=== PATIENT | female | born 1955 | race Caucasian/White ===

== ENCOUNTER 2023-12-02 07:40 | Outpatient (CLI) | payer OTHER, SELFPAY ==
--- NOTE | ~2023-12-02 | MR_ITS ---
MRI of the lumbar spine Clinical History: Compression deformity Technique: Axial T2-weighted images, and sagittal T1-weighted, T2-weighted, and T2 fat-sat images wer e acquired. Findings: There is no fracture or subluxation of the lumbar spine. There is minimal grade 1 anterolis thesis of L4 over L5. No suspicious bone marrow signal abnormality seen. At L1-L2, there is minimal disc bulge with moderate facet arthropathy. No central canal stenosis. The re is mild left neural foraminal narrowing. Right neural foramen preserved. At L2-L3, there is minimal disc bulge with advanced facet arthropathy. No mercedes central canal stenosi s or neural foraminal narrowing. At L3-L4, there is diffuse disc bulge with severe facet arthropathy, resulting in severe spinal canal stenosis/thecal sac compression. There is moderate to severe right neural foraminal narrowing, and m oderate left neural foraminal narrowing. At L4-L5, there is diffuse disc bulge and severe facet arthropathy, with mild central canal stenosis. There is mild bilateral neural foraminal narrowing. At L5-S1, there is minimal disc bulge with moderate to advanced facet arthropathy. No central canal s tenosis or neural foraminal narrowing. Paravertebral soft tissues are unremarkable. Impression: Severe degenerative spondylosis at L3-L4. Moderate degenerative changes remainder of the lumbar spine, as above. Reviewed, dictated and finalized at [facility]. Impression: Severe degenerative spondylosis at L3-L4. Moderate degenerative changes remainder of the lumbar spine, as above.
== END 2023-12-02 07:41 ==
LOC: MICIMG 07:40
PROVIDERS: PCP Internal Medicine; Visit Provider Internal Medicine
DX: M43.8X9 Other specified deforming dorsopathies, site unspecified (principal); M43.06 Spondylolysis, lumbar region
CPT/HCPCS: 72148